=== PATIENT | female | born 1960 | race Caucasian/White ===

== ENCOUNTER 2018-10-22 10:29 | Outpatient (CLI) | payer OTHER | END 2018-10-22 20:56 | disposition home or self-care (01) | LOC: SMA 10:29 | PROVIDERS: ATTEND Family Medicine | DX: Z12.31 Encounter for screening mammogram for malignant neoplasm of breast (principal) | CPT/HCPCS: 77067 ==

== ENCOUNTER 2020-09-16 08:39 | Outpatient (CLI) | payer OTHER | END 2020-09-16 20:58 | disposition home or self-care (01) | LOC: SMA 08:39 | PROVIDERS: ATTEND Family Medicine | DX: Z12.31 Encounter for screening mammogram for malignant neoplasm of breast (principal); N64.89 Other specified disorders of breast | CPT/HCPCS: 77067 ==